=== PATIENT | female | born 1990 | race Caucasian/White ===

== ENCOUNTER 2021-12-08 08:31 | Outpatient (RCR) | payer OTHER, SELFPAY ==
[2021-12-08 09:25] VITALS: BP 97/58; PULSE 91
== END 2022-01-09 08:18 | disposition home or self-care (01) ==
LOC: ANHOBOP 08:31
PROVIDERS: PCP Physician Assistant; Visit Provider Obstetrics & Gynecology
DX: O36.8330 Maternal care for abnormalities of the fetal heart rate or rhythm, third trimester, not applicable or unspecified (principal); Z3A.36 36 weeks gestation of pregnancy
CPT/HCPCS: 59025

== ENCOUNTER 2021-12-31 22:01 | Inpatient (IN) | payer OTHER, SELFPAY ==
[2021-12-31 23:15] VITALS: BP 104/71; PULSE 78
[2022-01-01] VITALS (95 sets, daily range): BP systolic 87–121; BP diastolic 46–70; PULSE 67–127; RESP 16–18; TEMP 36.2–37.1; O2SAT 96–100; BMI 29.0
[2022-01-01] MEDS: LACTATED RINGERS 1,000 ML 125 ML IV CONT (00:56)
[2022-01-01 01:01] LABS: Basophils Percent Auto 0.3 % (0.2-1.2); Eosinophils Absolute Auto 0.1 K/mm3 (0-0.3); Hematocrit 34.8 % (37.0-47.0); Hemoglobin 11.2 g/dL (12.0-15.0); Immature Granulocyte Percent A 0.9 % (0-0.5); Lymphocytes Absolute Auto 2.12 K/mm3 (0.9-3.2); Lymphocytes Percent Auto 18.9 % (18.3-44.2); Mean Corpuscular HGB Conc 32.2 g/dl (32-36); Mean Corpuscular Hemoglobin 29.6 pg (26-34); Mean Corpuscular Volume 92.1 fl (80-100); Mean Platelet Volume 11.4 fl (7.4-10.4); Monocytes Absolute Auto 0.9 K/mm3 (0.1-0.6); Monocytes Percent Auto 8.4 % (2.6-8.5); Neutrophils Absolute Auto 7.9 K/mm3 (1.3-6.7); Neutrophils Percent Auto 70.5 % (45.5-73.1); Platelet Count Result 256 k/mm3 (150-375); Red Blood Count 3.78 M/mm3 (4.2-5.4); Red Cell Distribution Width 13.3 % (11.5-14.5); White Blood Count 11.2 K/mm3 (4.5-10.0)
--- NOTE | 2022-01-01 01:04 | LDADM ---
This patient, Alicia Kyle, was admitted to Labor/Delivery/Recovery 105 on 12/31/21 at 22:01. Plans for labor, pain management and were discussed with patient. Patient/family oriented to hospital policies and general routines including ID bracelet, bed and alarms, visiting hours, pain management, procedures, bathroom and other care routines, personal items, smoking policy, room service/diet and guest tray routines, infant security routines, and visiting hours. Patient/Family are encouraged to report perceived risks to care and to ask questions if they do not understand what they are told or what they should do. See OBIX for further documentation.
--- NOTE | 2022-01-01 01:26 | WPDANESEPP ---
Anes - Eval Pre Procedure Procedure: labor epidural Date/Time: 01/01/22 01:26 Surgeon: graciela Preop Diagnosis: labor epidural Pre Op Diagnosis: labor Patient Data Age: 31 Gender: F Height: 1.57 m Weight: 72 kg Last Vital Signs Pulse 90 01/01/22 01:25 BP 114/63 01/01/22 01:25 Pulse Ox 98 01/01/22 01:24 Allergies Allergy/AdvReac Type Severity Reaction Status Date / Time No Known Allergies Allergy Verified 12/29/21 10:42 Home Medications Medication Instructions Recorded Confirmed Type vits no.126-ferrous fum 1 tablet PO DAILY 10/21/20 12/29/21 History 28 mg iron-folic acid 800 mcg tablet cholecalciferol (vitamin D3) 50 2,000 unit PO DAILY 11/10/21 12/29/21 History mcg (2,000 unit) capsule ferrous sulfate 142 mg (45 mg 142 mg PO BID 11/10/21 12/29/21 History iron) tablet,extended release Laboratory Tests 01/01/22 01/01/22 00:52 00:52 WBC 11.2 K/mm3 H K/mm3 (4.5-10.0) RBC 3.78 M/mm3 L M/mm3 (4.2-5.4) Hgb 11.2 g/dL L g/dL (12.0-15.0) Hct 34.8 % L % (37.0-47.0) MCV 92.1 fl fl (80-100) MCH 29.6 pg pg (26-34) MCHC 32.2 g/dl g/dl (32-36) RDW 13.3 % % (11.5-14.5) Plt Count 256 k/mm3 k/mm3 (150-375) MPV 11.4 fl H fl (7.4-10.4) Immature Gran % (Auto) 0.9 % H % (0-0.5) Neut % (Auto) 70.5 % % (45.5-73.1) Lymph % (Auto) 18.9 % % (18.3-44.2) [place] % (Auto) 8.4 % % (2.6-8.5) Eos % (Auto) 1.0 % % (0-4.4) Baso % (Auto) 0.3 % % (0.2-1.2) Lymph # (Auto) 2.12 K/mm3 K/mm3 (0.9-3.2) [place] # (Auto) 0.9 K/mm3 H K/mm3 (0.1-0.6) Eos # (Auto) 0.1 K/mm3 K/mm3 (0-0.3) Baso # (Auto) 0.0 K/mm3 K/mm3 (0.0-0.1) Abs Immat Gran (auto) 0.10 K/mm3 H K/mm3 (0.00-0.031) Absolute Neuts (auto) 7.9 K/mm3 H K/mm3 (1.3-6.7) Absolute Nucleated RBC 0.0 K/mm3 K/mm3 (0.0-0.012) Nucleated RBC % 0.0 % % (0.0-0.2) RPR Pending Patient hx anesthesia problems: none Family hx anesthesia problems: none Results Review: All pre-operative results and documents have been reviewed as part of the pre-operative evaluation. PMFSH Past Medical History Medical History History of vaginal delivery x 2 Family History Family History Other No pertinent family history Social History Social History Smoking status: Never smoker Second hand tobacco smoke exposure: No Alcohol intake: current Alcohol use details: Social Substance use: never Spiritual care concerns: No Exam Day of Procedure 01/01/22 01:26
--- NOTE | 2022-01-01 05:26 | PM.IMHP ---
H&P: HPI History of Present Illness Date/Time: 01/01/22 05:26 Patient admitted in active labor. She is a at 39 6/7 weeks by LMP of 03/28/2022 consistent with an 8 week ultrasound. PNC significant for history of delivery. She did receive [place] shots during this gestation until 36 weeks. She presented L and D with contractions. Her cervix changed to 5 cm and she was regularly tio. She was admitted for labor. labs reviewed. GBS negative. Chief Complaint: Contractions Review of Systems Review of Systems: All systems reviewed & are unremarkable except as noted in HPI and below Constitutional: Constitutional: Reports no additional constitutional complaints and Denies headache(s) Eyes: Eyes: Denies spots in vision ENT: Reports system reviewed and no additional complaints, except as documented and Denies headache(s) Cardiovascular: Cardiovascular: Denies chest pain and Denies dyspnea Respiratory: Respiratory: Denies dyspnea Gastrointestinal: Gastrointestinal: Reports no additional gastrointestinal complaints Genitourinary: Genitourinary: Reports amenorrhea Musculoskeletal: Musculoskeletal: Reports no additional musculoskeletal complaints Integumentary/Breasts: Skin/Breast: Denies breast mass and Denies rash Neurologic: Denies headache(s) Psychiatric: Psychiatric: Reports no additional psychiatric complaints PMFSH Past Medical History Medical History History of vaginal delivery x 2 Family History Family History Other No pertinent family history Social History Social History Smoking status: Never smoker Second hand tobacco smoke exposure: No Alcohol intake: current Alcohol use details: Social Substance use: never Spiritual care concerns: No Meds Home Medications and Allergies Home Medications Medication Instructions Recorded Confirmed Type vits no.126-ferrous fum 1 tablet PO DAILY 10/21/20 12/29/21 History 28 mg iron-folic acid 800 mcg tablet cholecalciferol (vitamin D3) 50 2,000 unit PO DAILY 11/10/21 12/29/21 History mcg (2,000 unit) capsule ferrous sulfate 142 mg (45 mg 142 mg PO BID 11/10/21 12/29/21 History iron) tablet,extended release Allergies Allergy/AdvReac Type Severity Reaction Status Date / Time No Known Allergies Allergy Verified 12/29/21 10:42 Vital Signs Vital Signs - 24 hr 12/31/21 23:15 01/01/22 01:24 01/01/22 01:25 Temperature Pulse Rate 78 90 Blood Pressure 104/71 114/63 Pulse Oximetry 98 01/01/22 01:26 01/01/22 01:28 01/01/22 01:29 Temperature Pulse Rate 84 90 Blood Pressure 104/50 L 102/56 L Pulse Oximetry 98 01/01/22 01:30 01/01/22 01:33 01/01/22 01:34 Temperature Pulse Rate 97 96 Blood Pressure 112/59 L 105/63 Pulse Oximetry 99 01/01/22 01:35 01/01/22 01:38 01/01/22 01:39 Temperature Pulse Rate 87 78 Blood Pressure 111/59 L 101/59 L Pulse Oximetry 97 01/01/22 01:40 01/01/22 01:43 01/01/22 01:44 Temperature Pulse Rate 89 88 Blood Pressure 105/62 113/57 L Pulse Oximetry 97 01/01/22 01:45 01/01/22 01:48 01/01/22 01:49 Temperature Pulse Rate 88 88 Blood Pressure 113/57 L 108/52 L Pulse Oximetry 98 01/01/22 01:51 01/01/22 01:53 01/01/22 01:54 Temperature Pulse Rate 92 87 Blood Pressure 98/46 L 102/53 L Pulse Oximetry 99 01/01/22 01:55 01/01/22 01:58 01/01/22 01:59 Temperature 98.7 F Pulse Rate 81 93 Blood Pressure 113/68 111/60 Pulse Oximetry 99 01/01/22 02:00 01/01/22 02:04 01/01/22 02:09 Temperature Pulse Rate 87 Blood Pressure 115/65 Pulse Oximetry 99 98 01/01/22 02:14 01/01/22 02:15 01/01/22 02:19 Temperature Pulse Rate 89 Blood Pressure 111/64 Pulse Oximetry 98 98 01/01/22 02:
--- NOTE | 2022-01-01 05:30 | PM.OBPRVD ---
OB - Delivery Note Procedure Delivery date: 01/01/22 Procedure: Spontaneous vaginal delivery Induction method: None Delivery monitor: External FHT Route of delivery: Laceration Description: Perineal - 1st Degree Delivery repair: vicryl (3.0 vicryl) Specimen: No Quantitative Blood Loss (ml): 150 Anesthesia type: Epidural Disposition: Floor Complications: None [place] Baby Date of : 01/01/22 Time of : 05:10 Weeks of gestation at delivery: 40 Infant gender: Female Weight (pounds): 6 Weight (ounces): 12 presentation: vertex position: Right Occiput Anterior Placenta delivery description: Spontaneous Cord Vessel Description: Nuchal Cord (x 2), Tight and Reduced (surgically) score one minute: 8 score five minutes: 9 Narrative: Patient presented to L and D in active labor. She was admitted. She progressed in labor well. An epidural was requested and placed. She had SROM clear at 0155. She delivered a female . Uncomplicated. There was a tight nuchal cord that was surgically reduced and the loop of cord around the neck reduced. Nose and mouth suctioned at perineum. Placenta delivered spontaneously and intact. First degree laceration repaired with 3.0 vicryl in interrupted sutures. Hemostasis noted. There was a small 5mm inclusion cyst at posterior vagina that detached. Hemostasis noted. Patient tolerated procedure well.
[2022-01-01] MEDS: IBUPROFEN 600 MG TABLET PO ×3 (07:22→23:56)
[2022-01-01] MEDS: WITCH HAZEL 40 PADS 1 PAD TOPICAL (07:56)
[2022-01-01] MEDS: BENZOCAINE 20% AER SPR (*SP) 56 GM CAN 1 SPRAY TOPICAL (07:56)
--- NOTE | 2022-01-01 08:40 | PC.NURSE ---
Patient transferred to post room #284 per wheelchair. Support person present. Oriented to unit, room, information board, rooming in, admission packet and security measures. Patient verbalizes understanding.
[2022-01-01] MEDS: ACETAMINOPHEN 325 MG TABLET 650 MG PO (17:33)
[2022-01-01] MEDS: DOCUSATE SODIUM 100 MG CAPSULE PO (17:33)
[2022-01-01] MEDS: LANOLIN (LANSINOH) 7.5 GM CREAM 1 APPLIC TOPICAL (17:34)
[2022-01-02 08:00] VITALS: BP 102/66; BP 95/59; PULSE 67; PULSE 71; RESP 16; RESP 18; TEMP 36.6; TEMP 36.8; O2SAT 97
[2022-01-02] MEDS: MULTIVIT/MIN/PREN/FOL AC/IRON TABLET 1 TAB PO (08:46)
[2022-01-02] MEDS: BENZOCAINE 20% AER SPR (*SP) 56 GM CAN 1 SPRAY TOPICAL (08:46)
[2022-01-02] MEDS: DOCUSATE SODIUM 100 MG CAPSULE PO (08:46)
[2022-01-02] MEDS: WITCH HAZEL 40 PADS 1 PAD TOPICAL (08:46)
[2022-01-02] MEDS: IBUPROFEN 600 MG TABLET PO (08:46)
[2022-01-02 09:03] LABS: Hemoglobin 11.6 g/dL (12.0-15.0)
--- NOTE | 2022-01-02 09:06 | PC.NURSE ---
Patient was given the opportunity to view the discharge video Mother & Baby Care, The First Two Weeks and to ask questions. Patient declined viewing the video and has been given the mother/baby guide for home reference.
--- NOTE | 2022-01-02 09:06 | PC.NURSE ---
Self care and infant care discharge instructions given including follow up visit date and time. Mother verbalized understanding. No questions or concerns voiced. Very pleasant and cooperative. at side.
[2022-01-02 09:13] LABS: Rapid Plasma Reagin Non-Reactive (NonReactive)
--- NOTE | 2022-01-02 09:46 | PM.OBPNVD ---
OB - PN: Subj Subjective Date/time seen: 01/02/22 09:46 Patient comments: pain well controlled, tolerating diet and other (Decreasing lochia.) baby status: doing well and nursing well [place] feeding status: exclusively breast feeding OB - PN: Obj Data Labs CBC & Chem 7: 01/02/22 08:56 Labs: Laboratory Results - last 24 hr 01/01/22 01/02/22 00:52 08:56 Hgb 11.6 L Hct 36.0 L RPR Non-reactive OB - PN A/P Plan day: 1 Plan: routine care Comments: Patient doing well. Baby doing well. She desires discharge. Discharge precautions discussed. Time Spent With Patient Time: Total time spent is greater than 50% in coordination of care (as documented) at patient's floor/unit and/or counseling patient: Exam Psych: Affect: normal affect Other: Abd: fundus firm below umbilicus, nontender Ext vag normal Ext: nontender
--- NOTE | 2022-01-02 09:49 | PM.OBDSVD ---
DS: Admitting Diagnosis Discharge Date 01/02/2022 Admitting Diagnosis Labor active DS: Discharge Diagnosis Discharge Diagnosis (1) Delivery normal: Code(s): O80 - Encounter for full-term uncomplicated delivery Status: Acute OB - DS: Summary Hospital Course Hospital Course: Patient admitted in active labor on evening of 12/31. She had an uncomplicated spontaneous vaginal delivery on morning of 01/01/2022. She did well . Baby was doing well . Patient had adequate pain control ambulating well. She desires discharge home on day 1. Discharge precautions discussed. OB Procedures : Ultrasound OB Procedures Intrapartum: Spontaneous Vag Delivery OB Procedures: : None Peripartum Data Delivery Method: Natural Vaginal Laceration Description: Perineal - 1st Degree complications: none Time Spent with Patient Time attestation: Total time spent providing and/or coordinating discharge services: Exam Const: General: cooperative Orientation/consciousness: oriented to person, oriented to place and oriented to time HENMT: General nose exam: Normal external nose present Eyes: General: appearance normal, both eyes and all related structures Resp: Effort & Inspection: normal respiratory effort GI: Inspection: normal to inspection Other: fundus firm -3 umbilicus : Other: perineum healing normal ext genitalia. Skin: General skin exam: normal color Neuro: General: oriented to person, oriented to place and oriented to time Extrem: General: normal to inspection and no calf tenderness Psych: Appearance: grossly normal Mental Status: mental status grossly normal DS: Data Data Completed and Pending Labs on day of discharge: Labs from last 24 hours 01/02/22 01/01/22 08:56 00:52 Hgb 11.6 L Hct 36.0 L RPR Non-reactive Discharge Plan Discharge Attending physician on discharge: Myles Alanis Discharging Clinician: Myles Alanis Anticipated Discharge Date/Time: 01/02/22 09:48 Patient Disposition: Home, Self-Care Activity: may shower and pelvic rest Diet: regular Discharge Instructions: Routine post vagina delivery instructions. Pelvic rest for 4-6 weeks. May take over the counter Ibuprofen or Tylenol for pain. Call if saturating more than a pad an hour, leg redness, pain and swelling, temperature>100.4. No strenuous activity. Patient Instructions: Antibiotic Form, Vaginal Delivery (DC) Stand Alone Forms: General Discharge Information Follow-up/Referrals: Myles Alanis MD [Physician] - 4 Weeks (Call for appointment) Discharge Medications: Continued Classic 28 mg iron- 800 mcg tablet 1 tablet PO DAILY RF: 0 Slow Fe 142 mg (45 mg iron) tablet extended release 142 mg PO BID RF: 0 cholecalciferol (vitamin D3) 50 mcg (2,000 unit) capsule 2,000 unit PO DAILY RF: 0 Date of admission: 12/31/21 22:01 Primary Care Provider: Parent,Patricia Stanton Admitting Provider: Myles Alanis Attending physician on admission: Myles Alanis Condition: Stable
--- NOTE | 2022-01-02 11:55 | WPDANLDPN2 ---
Anes-Prog Note L&D Date/Time: 01/02/22 11:55 Comfortable throughout: labor and delivery Neuraxial method: epidural Epidural/Spinal procedure site: clean & non-tender Neuro status: Neuro function grossly intact. Cardiovascular status: normal Respiratory status: normal Airway patency: baseline Mental status: baseline Post-Op hydration status: normal Vital Signs: Last Vital Signs Temp 36.6 C 01/02/22 08:00 Pulse 71 01/02/22 08:00 Resp 18 01/02/22 08:00 BP 102/66 01/02/22 08:00 Pulse Ox 97 01/02/22 08:00 Pain score (VAS): 0/10 Post-procedural complaints: none Patient feedback: Patient satisfied with anesthetic care.
--- NOTE | 2022-01-02 14:54 | PC.NURSE ---
[id number] Introductions were made, then consulted with patient to assess needs related to . Encouraged understanding of the benefits of skin to skin (unwrapping and placing vertically on her chest), responsive feeding and how to watch for early feeding signs, frequency of feeding on demand about every 8-12 times in 24 hours (every 2-3 hours), milk production, duration of feeding, signs of adequate intake/output, latching with big wide open gape, and how to record on the feeding sheet. Reviewed good handwashing when or touching the breast/nipples to prevent infection. Mother led the conversation with her experience and plan to feed her infant so far and her ability to independently latch optimally without discomfort. Mother is feeding appropriately for growth of and understands stimulating infant to eat if needed. has had appropriate feedings in the last 24 hours meets the outcomes for weight, output and jaundice at this time. Mother states she is confident to continue effectively and supplementing her infant at home or when to call for assistance and denies any additional assistance or education at this time. Reinforced understanding of milk production, transition of milk, signs of adequate intake, prevention/relief of engorgement, responsive after visualizing feeding cues, the different methods of stimulating infant to breastfeed 2-3 hours after the start of the last feeding, community resources, medication information reviewed per [employer] and when to call a provider using the resource of the mom and baby guide/[facility] website. Mother voiced understanding of the education shared. Reported to the primary RN.
[2022-01-03 09:36] VITALS: BP 110/67; PULSE 83; RESP 20; TEMP 36.6; O2SAT 97
== END 2022-01-02 14:00 | disposition home or self-care (01) | DRG 807 ==
LOC: ANHLDR 01-01 00:35 → ANHOB2 01-01 08:51
PROVIDERS: Admitting Provider Obstetrics & Gynecology; PCP Physician Assistant; Visit Provider Obstetrics & Gynecology
DX: O69.1XX0 Labor and delivery complicated by cord around neck, with compression, not applicable or unspecified (principal); Z37.0 Single live birth; Z3A.39 39 weeks gestation of pregnancy; O70.0 First degree perineal laceration during delivery
CPT/HCPCS: 36415; 84112; 85014; 85018; 85025; 86592; 86850; 86900; 86901; A9270; J2795; J7120